=== PATIENT | female | born 1995 | race Caucasian/White ===

== ENCOUNTER 2019-04-02 11:35 | Emergency (ER) | payer OTHER ==
[2019-04-02] MEDS ORDERED: CLINDAMYCIN 600 MG/D5W RTU 600 MG/50 ML RTUPB IV ONE (11:51)
--- NOTE | 2019-04-02 11:53 | ER Document Report ---
ED Medical Screen (RME) - General Chief Complaint: Thigh Pain Stated Complaint: RIGHT THIGH SWELLING Time Seen by Provider: 04/02/19 11:46 - HPI Notes: 04/02/19 11:51 Patient is a 23-year-old female no significant past medical history presents complaining of worsening cellulitis to her right anterior thigh over the past few days. She does not recall any obvious insect bite or tick bite. She was placed on amoxicillin as well as Bactrim by her solar designer/installer, but has noticed worsening swelling and redness. She does have pain associated. She has not noticed any drainage. No fever. I have treated and performed a rapid initial assessment of this patient. A comprehensive ED assessment and evaluation of the patient, analysis of test results and completion of medical decision making process will be conducted by additional ED providers. PHYSICAL EXAMINATION: GENERAL: Well-appearing, well-nourished and in no acute distress. Rt thigh: there is a large area of erythema, warmth, and tenderness noted outside of the previously marked skin. No obvious fluctuance. Physical Exam - Vital signs Vitals: Temp Pulse Resp BP Pulse Ox 98.3 F 77 20 134/69 H 98 04/02/19 11:41 04/02/19 11:41 04/02/19 11:41 04/02/19 11:41 04/02/19 11:41 Course - Vital Signs Vital signs: Temp Pulse Resp BP Pulse Ox 98.3 F 77 20 134/69 H 98 04/02/19 11:41 04/02/19 11:41 04/02/19 11:41 04/02/19 11:41 04/02/19 11:41
--- NOTE | 2019-04-02 13:11 | ER Document Report ---
ED General - General Chief Complaint: Skin Problem Stated Complaint: RIGHT THIGH SWELLING Time Seen by Provider: 04/02/19 11:46 Primary Care Provider: BURTON LAWSON MD [Primary Care Provider] - Follow up as needed - [facility] Notes: patient is on amoxicillin and bactrim for right thigh cellulitis she started abx yesterday no fever or chills she presented to ED due to spreading redness since starting antibiotics she is previously healthy and has had no difficulty with controlling infections in the past - Related Data Allergies/Adverse Reactions: No Known Allergies Allergy (Unverified 04/02/19 12:53) Past Medical History - Social History Smoking Status: Never Smoker Frequency of alcohol use: Occasional Drug Abuse: Marijuana Family History: Reviewed & Not Pertinent Patient has suicidal ideation: No Patient has homicidal ideation: No Review of Systems - Review of Systems Constitutional: No symptoms reported EENT: No symptoms reported Cardiovascular: No symptoms reported Respiratory: No symptoms reported Gastrointestinal: No symptoms reported Genitourinary: No symptoms reported Female Genitourinary: No symptoms reported Musculoskeletal: No symptoms reported Skin: Rash Hematologic/Lymphatic: No symptoms reported Neurological/Psychological: No symptoms reported Physical Exam - Vital signs Vitals: Temp Pulse Resp BP Pulse Ox 98.3 F 77 20 134/69 H 98 04/02/19 11:41 04/02/19 11:41 04/02/19 11:41 04/02/19 11:41 04/02/19 11:41 Interpretation: Normal - General General appearance: Appears well, Alert - HEENT Head: Normocephalic, Atraumatic Eyes: Normal Pupils: PERRL - Respiratory Respiratory status: No respiratory distress Chest status: Nontender Breath sounds: Normal Chest palpation: Normal - Cardiovascular Rhythm: Regular Heart sounds: Normal auscultation Murmur: No - Abdominal Inspection: Normal Distension: No distension Bowel sounds: Normal Tenderness: Nontender Organomegaly: No organomegaly - Back Back: Normal, Nontender - Extremities General upper extremity: Normal inspection, Nontender, Normal color, Normal ROM, Normal temperature General lower extremity: Normal inspection, Nontender, Normal color, Normal ROM, Normal temperature, Normal weight bearing. No: Joi's sign - Neurological Neuro grossly intact: Yes Cognition: Normal Orientation: AAOx4 [place] Coma Scale Eye Opening: Spontaneous [place] Coma Scale Verbal: Oriented [place] Coma Scale Motor: Obeys Commands Joel Coma Scale Total: 15 Speech: Normal Motor strength normal: LUE, RUE, LLE, RLE Sensory: Normal - Psychological Associated symptoms: Normal affect, Normal mood - Skin Skin Temperature: Warm Skin Moisture: Dry Skin Color: Normal Notes: right thigh with area of tender erythema. no crepitus or desquamation. blanches Course - Re-evaluation Re-evalutation: 04/02/19 14:17 celluliits given clinda in ED labs reassuring dc w/ continued care and return precautions at dc - Vital Signs Vital signs: Temp Pulse Resp BP Pulse Ox 98.3 F 77 20 134/69 H 98 04/02/19 11:41 04/02/19 11:41 04/02/19 11:41 04/02/19 11:41 04/02/19 11:41 - Laboratory Result Diagrams: 04/02/19 12:45 04/02/19 12:45 Laboratory results interpreted by me: 04/02/19 04/02/19 12:45 12:45 Sodium 136.5 L Urine Ketones TRACE H Discharge - Discharge Clinical Impression: Cellulitis of thigh, Elevated blood pressure reading Condition: Stable Disposition: HOME, SELF-CARE Instructions: Cellulitis ([facility]) Additional Instructions: keep taking antibiotics as prescribed return to the ED with worsening Forms: Elevated Blood Pressure Referrals: BURTON LAWSON MD [Primary Care Provider] - Follow up as needed
[2019-04-02 13:18] LABS: APPEARANCE,URINE CLEAR; BILIRUBIN,URINE NEGATIVE (NEGATIVE); COLOR,URINE YELLOW; GLUCOSE, URINE NEGATIVE (NEGATIVE); KETONES,URINE TRACE mg/dL (NEGATIVE); LEUKOCYTE ESTERASE,URINE NEGATIVE (NEGATIVE); NITRITE,URINE NEGATIVE (NEGATIVE); PROTEIN,URINE NEGATIVE (NEGATIVE); UROBILINOGEN,URINE NEGATIVE mg/dL (<2.0)
[2019-04-02 13:19] LABS: ABSOLUTE EOSINOPHILS # (AUTO) 0.2 10^3/uL (0.0-0.6); ABSOLUTE LYMPHOCYTES (AUTO) 1.1 10^3/uL (0.5-4.7); ABSOLUTE MONOCYTES (AUTO) 0.7 10^3/uL (0.1-1.4); ABSOLUTE NEUT (AUTO) 5.9 10^3/uL (1.7-8.2); BASOPHILS % (AUTO) 0.6 % (0-2); EOSINOPHILS % (AUTO) 2.8 % (0-6); HEMATOCRIT 37.5 % (36.0-47.0); HEMOGLOBIN 12.6 g/dL (12.0-15.5); MEAN CORPUSCULAR HEMOGLOBIN 28.7 pg (27.0-33.4); MEAN CORPUSCULAR HGB CONC 33.5 g/dL (32.0-36.0); MEAN CORPUSCULAR VOLUME 86 fl (80-97); MONOCYTES % (AUTO) 8.3 % (3-13); PLATELET COUNT 257 10^3/uL (150-450); RED BLOOD COUNT 4.38 10^6/uL (3.72-5.28); RED CELL DISTRIBUTION WIDTH 13.5 % (11.5-14.0); SEGMENTED NEUTROPHILS % (AUTO) 74.3 % (42-78); TOTAL CELLS COUNTED % (AUTO) 100 %; WHITE BLOOD COUNT 7.9 10^3/uL (4.0-10.5)
[2019-04-02 13:55] LABS: ALBUMIN 4.1 g/dL (3.5-5.0); ALKALINE PHOSPHATASE 49 U/L (38-126); ANION GAP 9 (5-19); ASPARTATE AMINO TRANSFERASE 19 U/L (14-36); BILIRUBIN,DIRECT 0.2 mg/dL (0.0-0.4); BILIRUBIN,TOTAL 0.2 mg/dL (0.2-1.3); BLOOD UREA NITROGEN 11 mg/dL (7-20); CALCIUM 9.2 mg/dL (8.4-10.2); CARBON DIOXIDE 22 mmol/L (22-30); CHLORIDE 106 mmol/L (98-107); GLUCOSE 87 mg/dL (75-110); POTASSIUM 4.2 mmol/L (3.6-5.0); TOTAL PROTEIN 7.5 g/dL (6.3-8.2)
[2019-04-02 14:49] VITALS: BP 118/72
== END 2019-04-02 14:46 | disposition home or self-care (01) ==
LOC: ER 11:35
DX: L03.115 Cellulitis of right lower limb (principal); R03.0 Elevated blood-pressure reading, without diagnosis of hypertension
CPT/HCPCS: 36415; 80053; 81001; 81025; 85025; 87040; 96365; 99283